=== PATIENT | male | born 1960 | race Caucasian/White ===

== ENCOUNTER 2021-09-10 20:42 | Emergency (ER) | payer BC, MEDICARE ==
--- NOTE | 2021-09-10 20:45 | ERPHSYRPT ---
- History of Present Illness Time Seen by Provider: 09/10/21 20:45 Source: patient, family Exam Limitations: no limitations Physician History: This is a 61-year-old white male who fell from a height catching his right lower leg and calf on a bar then hit his head and neck. He did not lose consciousness. He complains of a headache. Patient has chronic neck problems. He is coughing a bit after the fall which is new for him. He is not short of breath. He has no chest pain. He walked in on his own into the hospital room. We placed a c-collar on him. He has no abdominal pain. He is not on any blood thinning medication. Occurred: just prior to arrival Reason for Fall: unknown Injuries/Pain Location: head, neck, lower extremity Loss of Consciousness: no loss of consciousness Quality: aching Severity of Pain-Max: mild Severity of Pain-Current: mild Modifying Factors: Improves With: movement Associated Symptoms (Fall): extremity injury (Right posterior calf), headache, nausea, neck pain Allergies/Adverse Reactions: No Known Drug Allergies Allergy (Unverified 09/10/21 21:06) Travel Risk - International Travel Have you traveled outside of the country in past 3 weeks: No - Coronavirus Screening Are you exhibiting any of the following symptoms?: No Close contact with a COVID-19 positive Pt in past 14-21 Days: No - Review of Systems Constitutional: No Symptoms Eyes: No Symptoms Ears, Nose, & Throat: No Symptoms Respiratory: Cough Cardiac: No Symptoms Abdominal/Gastrointestinal: No Symptoms Genitourinary Symptoms: No Symptoms Musculoskeletal: Neck Pain Skin: No Symptoms Neurological: No Symptoms Psychological: No Symptoms Endocrine: No Symptoms Hematologic/Lymphatic: No Symptoms Immunological/Allergic: No Symptoms All Other Systems: Reviewed and Negative - Past Medical History Pertinent Past Medical History: Yes - Past Surgical History Past Surgical History: Yes - Nursing Vital Signs Nursing Vital Signs: Initial Vital Signs Temperature 97.6 F 09/10/21 20:50 Pulse Rate 74 09/10/21 20:50 Respiratory Rate 18 09/10/21 20:50 Blood Pressure 166/79 09/10/21 20:50 O2 Sat by Pulse Oximetry 98 09/10/21 20:50 Pain Scale Pain Intensity 3 - [place] Coma Score Best Eye Response ([place]): (4) open spontaneously Best Verbal Response ([place]): (5) oriented Best Motor Response ([place]): (6) obeys commands [place] Total: 15 - Physical Exam General Appearance: no apparent distress, alert, anxiety Head Injury: no evidence of injury Eye Exam: PERRL/EOMI, eyes nml inspection ENT Exam: airway nml, nml ext.inspection, hearing grossly normal Neck Exam: trachea midline, full range of motion, normal alignment, normal inspection, pain on movement of neck (Per patient prior to arrival to the emergency department.), tender lateral, c-collar in place (Upon entrance in the emergency department we placed a c-collar on this patient), other (No crepitance) Respiratory/Chest Exam: No chest tenderness, No respiratory distress, No crepitus Cardiovascular Exam: normal heart sounds, normal peripheral pulses Gastrointestinal Exam: No tenderness Rectal Exam: not done Back Exam: normal inspection, normal range of motion, No CVA tenderness, No vertebral tenderness Extremity Exam: normal range of motion, tenderness (Soft tissue right posterior) Neurologic Exam: alert, oriented x 3, cooperative, venetian blind washer II-XII nml as tested, normal mood/affect, nml cerebellar function, nml station & gait, sensation nml Skin Exam: normal color, warm, dry SpO2 Interpretation: normal O2 Delivery: Room Air - Course Nursing assessment & vital signs reviewed: Yes Ordered Tests: Active Orders 24 hr Category Date Time Status CERVICAL SPINE WO CONTRAST [CT] Stat Exams 09/10/21 21:13 Taken HEAD WITHOUT CONTRAST [CT] Stat Exams 09/10/21 21:13 Taken LOWER EXTREMITY WO CONTRAST [CT] Stat Exams 09/10/21 21:13 Taken NECK WO CONTRAST [CT] Stat Exams 09/10/21 21:16 Ordered Medication Summary Discontinued Medications Generic Name Dose Route Start Last Admin Trade Name Faizanq PRN Reason Stop Dose Admin Ondansetron HCl 4 mg 09/10/21 21:14 09/10/21 21:15 Zofran 4 Mg/Udtablet Orally Disintegrating PO 09/10/21 21:15 4 mg STAT ONE Administration Ondansetron HCl Confirm 09/10/21 21:14 Zofran 4 Mg/Udtablet Orally Disintegrating Administered 09/10/21 21:15 Dose 4 mg .ROUTE .STK-MED ONE - Progress Progress: improved, pain not gone completely Progress Note: 09/10/21 22:14 CAT scan of the head without contrast shows no acute intracranial abnormality. The soft tissues are unremarkable. CAT scan of the neck and cervical spine without contrast shows multilevel severe degenerative spondylosis without evidence of any acute fracture. The soft tissues are unremarkable. Counseled pt/family regarding: diagnosis, need for follow-up, rad results - Departure Departure Disposition: Home Clinical Impression: Fall with no significant injury Condition: Stable Critical Care Time: No Additional Instructions: May massage right calf. May alternate ice and heat to the right calf area. Lenny e your medications as prescribed. Return to the emergency department symptoms worsen. For persistent, but not worsening symptoms may follow-up with your primary care physician for further evaluation and management. Prescriptions: Hydrocodone/APAP 5/325 [[place] 5/325 mg] 1 each PO Q8H PRN PRN #6 tablet MDD 3 PRN Reason: Pain Prednisone 10 mg [Deltasone 10 mg] 10 mg PO TID #12 tablet
[2021-09-10] MEDS ORDERED: ZOFRAN ODT 4 MG PO ONE (21:14)
[2021-09-10] MEDS ORDERED: ZOFRAN ODT 4 MG ONE (21:14)
[2021-09-10 21:56] VITALS: O2SAT 96
[2021-09-10] MEDS ORDERED: Hydromorphone 1 mg/ml Injection IM ONE (22:12)
[2021-09-10] MEDS ORDERED: solu-MEDROL 125 MG, Sterile H2O 10 ml 2 ML IM ONE ×2 (22:13)
[2021-09-10] MEDS ORDERED: Hydromorphone 1 mg/ml Injection ONE (22:15)
[2021-09-10] MEDS ORDERED: solu-MEDROL ONE (22:15)
[2021-09-10] MEDS ORDERED: Sterile H2O 10 ml IJ ONE (22:15)
[2021-09-10] MEDS ORDERED: BACIGUENT PACKET TP ONE (22:23)
[2021-09-10] MEDS ORDERED: BACIGUENT PACKET ONE (22:24)
--- NOTE | 2021-09-10 22:43 | XRAY ---
Indication: Head injury following fall. Multiple contiguous axial images obtained through the head without contrast. Comparison: None Normal appearing brain parenchyma, ventricles, and bony calvarium for patient's age. Visualized paranasal sinuses and mastoid air cells are clear. Impression: Normal CT head without contrast exam. Comment: Preliminary interpretation made by [facility]. No critical discrepancy.
--- NOTE | 2021-09-10 22:47 | XRAY ---
Indication: Pain following fall. Multiple contiguous axial images obtained through the cervical spine. Sagittal and coronal reformatted images obtained. Comparison: None Axial images negative for acute fracture or suspicious bone lesions. C3-C4 fusion either developmental versus remote surgery. Mild/moderate C2-C7 degenerative endplate spurring/sclerosis. Also mild multilevel bilateral degenerative facet hypertrophy. Sagittal and coronal reformatted images demonstrates lordotic straightening. C2-C7 disc space loss. No acute compression fracture, subluxation, or jump facet. Normal appearing craniocervical junction. Visualized noncontrasted soft tissues including lung apices are unremarkable. Impression: 1. Negative acute fracture/subluxation. 2. C3-C4 fusion either developmental versus old surgery. 3. Multilevel degenerative changes. Comment: Preliminary interpretation made by [facility]. No critical discrepancy.
--- NOTE | 2021-09-10 22:51 | XRAY ---
Indication: Right calf pain following fall. Multiple contiguous axial images obtained through the right lower leg to include the knee and ankle joint. Sagittal and coronal reformatted images obtained. Comparison: None No acute fracture, dislocation, suspicious bony lesions, or radiopaque foreign body. Knee demonstrates minimal medial degenerative joint space narrowing. Ankle demonstrates minimal widening of the talotibial articulation laterally without effusion. Tiny posterior talus accessory ossicle and minimal anterior tibial vascular calcifications. Remaining visualized noncontrasted soft tissues unremarkable. Impression: Minimal knee degenerative changes and nonspecific widening talotibial articulation. Comment: Preliminary interpretation made by [facility]. No critical discrepancy.
[2021-09-10 23:01] VITALS: BP 127/82; PULSE 64
== END 2021-09-10 23:02 | disposition home or self-care (01) ==
LOC: ED 20:42
DX: Z04.3 Encounter for examination and observation following other accident (principal); R51.9 Headache, unspecified; M79.661 Pain in right lower leg; R11.0 Nausea; G89.29 Other chronic pain; M54.2 Cervicalgia; Z79.891 Long term (current) use of opiate analgesic; Z79.52 Long term (current) use of systemic steroids
CPT/HCPCS: 70450; 72125; 73700; 96372; 99284; J1170; J2930; Q0162; A9270-GY